=== PATIENT | male | born 1955 | race Caucasian/White ===

== ENCOUNTER 2020-10-22 09:48 | Outpatient (CLI) | payer BC, SELFPAY ==
--- NOTE | ~2020-10-22 | XR_ITS ---
XR abdomen/kub 1V 10/22/2020 10:09 Indication: Bilateral kidney stones Procedure: KUB Comparison: 11/20/2005 Findings: There are small bilateral renal stones. Bowel gas pattern is nonobstructive. There are pelv ic phleboliths. Moderate lumbar spondylosis. Impression: 1: Bilateral nephrolithiasis. Reviewed, dictated and finalized at location B. Impression: 1: Bilateral nephrolithiasis.
== END 2020-10-22 09:49 | disposition home or self-care (01) ==
LOC: ANHIMG 09:55
PROVIDERS: PCP Physician Assistant; Visit Provider Urology
DX: N20.0 Calculus of kidney (principal)
CPT/HCPCS: 74018

== ENCOUNTER 2021-05-16 08:21 | Outpatient (CLI) | payer BC, SELFPAY ==
--- NOTE | ~2021-05-16 | XR_ITS ---
XR abdomen/kub 1V 05/16/2021 08:40 Indication: Bilateral kidney stones Procedure: KUB Comparison: 10/22/2020 Findings: There are bilateral renal stones. Bowel gas pattern is nonobstructive. There are pelvic phl eboliths, unchanged. No definite calcifications are identified in the expected course of the ureters. Moderate lumbar spondylosis. Impression: 1: Bilateral nephrolithiasis. Reviewed, dictated and finalized at location D. Impression: 1: Bilateral nephrolithiasis.
== END 2021-05-16 08:22 | disposition home or self-care (01) ==
LOC: ANHIMG 08:25
PROVIDERS: PCP Physician Assistant; Visit Provider Urology
DX: N20.0 Calculus of kidney (principal); M47.816 Spondylosis without myelopathy or radiculopathy, lumbar region
CPT/HCPCS: 74018

== ENCOUNTER 2022-05-27 10:20 | Outpatient (CLI) | payer BC, SELFPAY ==
--- NOTE | ~2022-05-27 | XR_ITS ---
EXAM: XR abdomen/kub 1V DATE: 05/27/2022 10:37 HISTORY: [facility] KID[facility] STONES follow up exam . COMPARISON: 05/16/2021. FINDINGS: Clear lung bases. Normal bowel gas pattern. No organomegaly. Bilateral renal calcification s, similar in number and location. Pelvic phleboliths. Lumbar scoliosis and degenerative disc disease . Dystrophic calcifications in the left hip. IMPRESSION: Stable bilateral nephrolithiasis. Reviewed, dictated and finalized at location K.
== END 2022-05-27 10:21 | disposition home or self-care (01) ==
PROVIDERS: PCP Physician Assistant; Visit Provider Urology
DX: N20.0 Calculus of kidney (principal)
CPT/HCPCS: 74018

== ENCOUNTER 2023-05-27 08:46 | Outpatient (CLI) | payer BC, SELFPAY ==
--- NOTE | ~2023-05-27 | XR_ITS ---
EXAMINATION: XR abdomen/kub 1V INDICATION: Bilateral kidney stones TECHNIQUE: Supine views of the abdomen were obtained on 2 radiographs. COMPARISON: 05/27/2022 FINDINGS: There are at least five stones right kidney which appear to be stable and measure up to 3 m m. There are four bullous of the pelvis. No stones are identified along the expected courses of the u reters or bladder. The bowel gas pattern is normal. The visualized lung bases are clear. There is mod erate lumbar spondylosis. 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 IMPRESSION: 1. Unchanged bilateral nephrolithiasis. Reviewed, dictated and finalized at location A.
== END 2023-05-27 08:47 | disposition home or self-care (01) ==
PROVIDERS: PCP Physician Assistant; Visit Provider Urology
DX: N20.0 Calculus of kidney (principal)
CPT/HCPCS: 74018